=== PATIENT | female | born 1960 | race Caucasian/White ===

== ENCOUNTER 2025-01-07 20:19 | Inpatient (IN) | payer BC ==
[~2025-01-07] VITALS: Ht 154.9 cm; Wt 49.9 kg
[2025-01-07 20:54] LABS: PLATELET COUNT (AUTO) 253 K/uL (179-408); RED BLOOD CELL COUNT(AUTO) 4.25 MIL/uL (3.63-4.92); RED CELL DISTRIBUTION WIDTH 13.6 % (12.3-17.7); WHITE BLOOD COUNT (AUTO) 14.8 K/uL (3.8-11.8)
[2025-01-07 21:06] LABS: CREATININE 0.7 mg/dL (0.6-1.3); SODIUM SERUM 140 mmol/L (136-145); UREA NITROGEN, BLOOD 15 mg/dL (7-18)
[2025-01-07 21:18] LABS: ETHANOL < 3 MG/DL (0-10)
[2025-01-07 21:25] LABS: *BILIRUBIN,URIN NEGATIVE (NEGATIVE); *BLOOD, URINE NEGATIVE (NEGATIVE); *CLARITY,URINE CLEAR (CLEAR); *COLOR,URINE YELLOW (YELLOW); *KETONES,URINE 1+ (NEGATIVE); *PROTEIN,URINE NEGATIVE (NEGATIVE); *UROBILINOGEN,URINE 0.2 E.U./dl (NORMAL); LEUKOCYTE ESTERASE ,URINE NEGATIVE (NEGATIVE); NITRITE, URINE NEGATIVE (NEGATIVE); UGLUCOSE NEGATIVE (NEGATIVE)
[2025-01-07 21:28] LABS: ASPARTATE AMINOTRANSFERASE 17 U/L (15-37); TOTAL PROTEIN, SERUM 7.1 g/dL (6.4-8.2)
[2025-01-07 21:31] LABS: SQUAMOUS EPITHELIAL CELL,UR FEW /HPF (NONE SEEN)
[2025-01-07 21:36] LABS: *AMPHETAMINE, URINE NEGATIVE (NEGATIVE); *BARBITURATE, URINE NEGATIVE (NEGATIVE); *BENZODIAZEPINE, URINE POSITIVE (NEGATIVE); *CANNABINOID, URINE NEGATIVE (NEGATIVE); *COCCAINE, URINE NEGATIVE (NEGATIVE); *OPIATE, URINE NEGATIVE (NEGATIVE); *PHENCYCLIDINE SCREEN,URINE NEGATIVE (NEGATIVE); FENTANYL, URINE NEGATIVE (NEGATIVE)
[2025-01-07] MEDS ORDERED: GABA600T12 PO (23:38)
[2025-01-07] MEDS ORDERED: MIRT-93 PO (23:38)
[2025-01-07] MEDS ORDERED: LEVO25TA9 PO (23:38)
[2025-01-07] MEDS ORDERED: CLON1TAB12 PO (23:38)
[2025-01-07] MEDS: IV NORMAL SALINE 1000 ML BAG IV ONE (23:52)
[2025-01-08] VITALS: BP 109/66
[2025-01-08] MEDS: IV NORMAL SALINE 1000 ML BAG IV ONE (02:18)
[2025-01-08 03:01] VITALS: BP 106/64; TEMP 97.7; O2SAT 100
[2025-01-08] MEDS ORDERED: LORAZEPAM 1 MG TABLET PO PRN (04:15)
[2025-01-08] MEDS ORDERED: MAG HYDROX/AL HYDROX/SIMETH 30 ML LIQUID UDC PO PRN (04:15)
[2025-01-08] MEDS ORDERED: ZOLPIDEM 5 MG TABLET PO PRN (04:15)
[2025-01-08] MEDS ORDERED: LORAZEPAM 1 MG TABLET PO ONE (04:15)
[2025-01-08] MEDS ORDERED: ACETAMINOPHEN 325 MG TABLET PO PRN (04:15)
[2025-01-08 08:47] VITALS: BP 136/64; TEMP 98; O2SAT 96
[2025-01-08] MEDS ORDERED: LEVOTHYROXINE SODIUM 25 MCG TABLET PO SCH (09:00)
[2025-01-08] MEDS: PAROXETINE HCL 10 MG TABLET PO SCH (11:45)
[2025-01-08] MEDS ORDERED: THYR30TA21 PO (12:06)
[2025-01-08] MEDS ORDERED: CLON1TAB12 PO (12:07)
[2025-01-08] MEDS ORDERED: SUVO20TA PO (12:08)
[2025-01-08] MEDS ORDERED: OLAN15TA PO (12:08)
[2025-01-08] MEDS ORDERED: MEMA5TAB42 PO (12:21)
[2025-01-08] MEDS ORDERED: MIRT7.5T10 PO (12:22)
[2025-01-08] MEDS ORDERED: VENL150C58 PO (12:23)
[2025-01-08] MEDS ORDERED: PROG200C9 PO (12:26)
[2025-01-08] MEDS ORDERED: [UNRECOGNIZED DRUG - OTHER] EACHEYE (12:29)
[2025-01-08] MEDS ORDERED: [UNRECOGNIZED DRUG - OTHER] PO (12:32)
[2025-01-08] MEDS ORDERED: [UNRECOGNIZED DRUG - OTHER] EACHEYE (13:27)
[2025-01-08] MEDS ORDERED: TESTOSTERONE CREAM TOP (13:28)
[2025-01-08] MEDS ORDERED: ESTROGEN CREAM TOP (13:29)
[2025-01-08 15:26] VITALS: BP 100/54; TEMP 98.2; O2SAT 98
[2025-01-08] MEDS: GABAPENTIN 300 MG CAPSULE PO SCH (17:05)
[2025-01-08] MEDS: ENSURE ENLIVE (VAN) 240 ML LIQUID PO SCH (18:10)
[2025-01-08] MEDS: ZOLPIDEM 5 MG TABLET PO PRN (20:49)
[2025-01-08] MEDS ORDERED: PROGESTERONE MICRONIZED PO SCH (21:00)
[2025-01-08] MEDS ORDERED: SUVOREXANT PO SCH (21:00)
[2025-01-08] MEDS ORDERED: PROGESTERONE,MICRONIZED 100 MG CAPSULE PO SCH (21:00)
[2025-01-08] MEDS: MIRTAZAPINE 15 MG TABLET PO SCH (22:11)
[2025-01-08] MEDS: POLYVINYL ALCOHOL OPHT DROPS 15 ML BOTTLE EACHEYE PRN (22:11)
[2025-01-09] MEDS: LEVOTHYROXINE SODIUM 25 MCG TABLET PO SCH (06:29)
[2025-01-09] MEDS: POLYVINYL ALCOHOL OPHT DROPS 15 ML BOTTLE EACHEYE PRN (06:33)
[2025-01-09 07:09] LABS: PLATELET COUNT (AUTO) 238 K/uL (179-408); RED BLOOD CELL COUNT(AUTO) 3.83 MIL/uL (3.63-4.92); RED CELL DISTRIBUTION WIDTH 13.9 % (12.3-17.7); WHITE BLOOD COUNT (AUTO) 6.0 K/uL (3.8-11.8)
[2025-01-09 07:24] LABS: CREATININE 0.6 mg/dL (0.6-1.3); SODIUM SERUM 145.0 mmol/L (136-145)
[2025-01-09 07:43] LABS: ASPARTATE AMINOTRANSFERASE 21.0 U/L (15-37); TOTAL PROTEIN, SERUM 6.1 g/dL (6.4-8.2); UREA NITROGEN, BLOOD 11.0 mg/dL (7-18)
[2025-01-09] MEDS: NALTREXONE PO SCH (08:42)
[2025-01-09 09:00] VITALS: BP 90/47; TEMP 98; O2SAT 96
[2025-01-09] MEDS ORDERED: TESTOSTERONE TOP SCH (09:00)
[2025-01-09] MEDS ORDERED: ESTROGEN TOP SCH (09:00)
[2025-01-09] MEDS: LORAZEPAM 1 MG TABLET PO PRN (14:21)
[2025-01-09 16:12] VITALS: BP 102/60; TEMP 98; O2SAT 96
[2025-01-09] MEDS: [UNRECOGNIZED DRUG - OTHER] EACHEYE SCH (16:31)
[2025-01-09] MEDS: [UNRECOGNIZED DRUG - OTHER] TOP SCH (16:32)
[2025-01-09] MEDS: ESTRADIOL TOP SCH (16:32)
[2025-01-09] MEDS: TESTOSTERONE TOP SCH (17:17)
[2025-01-09] MEDS: [UNRECOGNIZED DRUG - OTHER] TOP SCH (17:17)
[2025-01-09 20:00] VITALS: BP 95/57; TEMP 98; O2SAT 96
[2025-01-09] MEDS: ATORVASTATIN 10 MG TABLET PO SCH (20:23)
[2025-01-10 08:48] VITALS: BP 102/61; TEMP 98; O2SAT 99
[2025-01-10 16:22] VITALS: BP 123/71; TEMP 98; O2SAT 96
[2025-01-10 19:49] VITALS: BP 92/53; TEMP 98.6; O2SAT 98
[2025-01-11 08:04] VITALS: BP 101/53; TEMP 98; O2SAT 96
[2025-01-11] MEDS: PAROXETINE HCL 20 MG TABLET PO SCH (08:27)
[2025-01-11] MEDS ORDERED: PAROXETINE HCL 10 MG TABLET PO SCH (09:00)
[2025-01-11] MEDS: HYDROXYZINE PAMOATE 25 MG CAPSULE PO PRN (12:54)
[2025-01-11 16:14] VITALS: BP 108/61; TEMP 98; O2SAT 96
[2025-01-11] MEDS: MAGNESIUM HYDROXIDE 30 ML LIQUID UDC PO PRN (16:52)
[2025-01-11 19:52] VITALS: BP 106/60; TEMP 98.4; O2SAT 96
[2025-01-11] MEDS: AMITRIPTYLINE HCL 25 MG TABLET PO SCH (20:36)
[2025-01-11] MEDS: MELATONIN 3 MG TABLET PO SCH (20:36)
[2025-01-12 08:30] VITALS: BP 101/70; TEMP 98; O2SAT 96
[2025-01-12 16:06] VITALS: BP 106/64; TEMP 98; O2SAT 96
[2025-01-12 20:01] VITALS: BP 104/62; TEMP 98.1; O2SAT 99
[2025-01-12] MEDS: MELATONIN 3 MG TABLET PO SCH (20:40)
[2025-01-12] MEDS: AMITRIPTYLINE HCL 50 MG TABLET PO SCH (20:43)
[2025-01-12] MEDS ORDERED: MELATONIN 3 MG TABLET PO SCH (21:00)
[2025-01-12] MEDS ORDERED: AMITRIPTYLINE HCL 25 MG TABLET PO SCH (21:00)
[2025-01-13 08:00] VITALS: BP 100/58; TEMP 98.4; O2SAT 96
[2025-01-13 15:34] VITALS: BP 103/59; TEMP 98.5; O2SAT 96
[2025-01-13] MEDS: DOCUSATE SODIUM 100 MG CAPSULE PO SCH (17:24)
[2025-01-13 20:00] VITALS: BP 100/64; TEMP 98.4; O2SAT 95
[2025-01-14 08:17] VITALS: BP 106/60; TEMP 98.4; O2SAT 94
[2025-01-14 16:06] VITALS: BP 110/74; TEMP 98.5; O2SAT 97
[2025-01-14 20:00] VITALS: BP 95/51; TEMP 98.5; O2SAT 94
[2025-01-14 20:46] VITALS: BP 108/59
[2025-01-15 07:44] VITALS: BP 95/57; TEMP 98.2; O2SAT 96
== END 2025-01-15 11:30 | disposition home or self-care (01) | DRG 885 ==
LOC: ER 20:23 → GPS 23:10
PROVIDERS: ADMIT Psychiatry & Neurology Psychiatry; ATTEND Nurse Practitioner Family
DX: F33.2 Major depressive disorder, recurrent severe without psychotic features (principal); T42.4X1A Poisoning by benzodiazepines, accidental (unintentional), initial encounter; E03.9 Hypothyroidism, unspecified; Z79.890 Hormone replacement therapy; F13.10 Sedative, hypnotic or anxiolytic abuse, uncomplicated; E78.5 Hyperlipidemia, unspecified; D72.829 Elevated white blood cell count, unspecified; R73.9 Hyperglycemia, unspecified; F41.9 Anxiety disorder, unspecified; R40.0 Somnolence; Y92.003 Bedroom of unspecified non-institutional (private) residence as the place of occurrence of the external cause; T40.711A Poisoning by cannabis, accidental (unintentional), initial encounter; G47.9 Sleep disorder, unspecified
CPT/HCPCS: 36415; 70450; 71045; 84443; 84484; 85025; 93005; G0480; J7040; J8499; Q0163